=== PATIENT | female | born 1990 | race African-American/Black ===

== ENCOUNTER 2016-09-26 02:07 | Emergency (ER) | payer MEDICAID ==
[~2016-09-26] VITALS: Ht 172.7 cm; Wt 116.6 kg
[2016-09-26 05:21] VITALS: BP 116/79
== END 2016-09-26 05:24 | disposition home or self-care (01) ==
LOC: ER 02:12
DX: J02.0 Streptococcal pharyngitis (principal)

== ENCOUNTER 2019-03-27 00:48 | Emergency (ER) | payer MEDICAID, OTHER ==
[~2019-03-27] VITALS: Ht 172.7 cm; Wt 107.6 kg
[2019-03-27] MEDS ORDERED: MORPHINE SULFATE 10 MG/ML INJ 1ML SDV IV ONE (04:45)
[2019-03-27 06:05] VITALS: BP 132/82
[2019-03-27 06:08] LABS: Basophils # (auto) 0 uL; Basophils % (auto) 0.4 % (0.0-2.0); Eosinophils # (auto) 0.1 uL; Eosinophils % (auto) 1.8 % (0.0-7.0); Hemoglobin 13.4 g/dL (12.2-16.2); Lymphocytes # (auto) 2.1 uL; Mean Corpuscular Hgb Conc. 33.5 g/dL (32.0-36.0); Mean Corpuscular Volume 89.7 fL (80.0-100.0); Monocytes # (auto) 0.5 uL; Monocytes % (auto) 6.9 % (0.0-12.0); Neutrophils % (auto) 59.9 % (37.0-80.0); Platelet Count (auto) 125 10^3/uL (140-450); Red Blood Cells 4.46 10^6/uL (4.0-5.20); Red Cell Distribution Width 13.5 % (11.8-14.3); White Blood Cell 6.8 10^3/uL (4.4-10.8)
[2019-03-27 06:31] LABS: Albumin 3.6 g/dL (3.4-5.0); Anion Gap 6 (5-15); Blood Urea Nitrogen 7 mg/dL (7-18); Calcium 8.9 mg/dL (8.5-10.1); Carbon Dioxide 26 mmol/L (21-32); Chloride 110 mmol/L (98-107); Glucose 97 mg/dL (74-106); Magnesium 2.1 mg/dL (1.6-2.6); Potassium 3.6 mmol/L (3.5-5.1); Sodium 142 mmol/L (136-145)
[2019-03-27 06:39] LABS: Alanine Aminotransferase 14 U/L (13-56); Alkaline Phosphatase 45 U/L (45-117); Aspartate Aminotransferase 14 U/L (15-37); BUN/Creatinine Ratio 9.2; Bilirubin, Total 0.4 mg/dL (0.2-1.0); GFR African American 116 mL/min; GFR Non-African American 96 mL/min; Total Protein 7.1 g/dL (6.4-8.2)
== END 2019-03-27 05:41 | disposition home or self-care (01) ==
LOC: ER 00:50
DX: J40 Bronchitis, not specified as acute or chronic (principal); Z98.51 Tubal ligation status
CPT/HCPCS: 36415; 71045; 80053; 83735; 84484; 85025; 93005

== ENCOUNTER 2019-11-12 14:52 | Emergency (ER) | payer OTHER ==
[~2019-11-12] VITALS: Ht 167.6 cm; Wt 72.6 kg
[2019-11-12 15:00] VITALS: BP 106/72
[2019-11-12] MEDS ORDERED: KETOROLAC TROMETH 60MG/2ML VIAL IM ONE (16:45)
== END 2019-11-12 18:17 | disposition home or self-care (01) ==
LOC: ER 14:52
DX: S46.912A Strain of unspecified muscle, fascia and tendon at shoulder and upper arm level, left arm, initial encounter (principal); S46.911A Strain of unspecified muscle, fascia and tendon at shoulder and upper arm level, right arm, initial encounter; J18.9 Pneumonia, unspecified organism; Z98.51 Tubal ligation status; X50.0XXA Overexertion from strenuous movement or load, initial encounter; Y93.89 Activity, other specified; Y92.89 Other specified places as the place of occurrence of the external cause; Y99.8 Other external cause status
CPT/HCPCS: 71046; 73030; 81025; 96372; 99284; J1885